=== PATIENT | female | born 1965 | race Caucasian/White ===

== ENCOUNTER 2024-01-11 15:00 | Emergency (ER) | payer BC ==
[~2024-01-11] VITALS: Ht 157.5 cm; Wt 59.0 kg
[2024-01-11 15:09] VITALS: BP_SYST 140; PULSE 93; RESP 22; TEMP 98.3; O2SAT 98
[2024-01-11] MEDS: ONDANSETRON HCL 4 MG/2 ML VIAL IVP ONE ×2 (15:37→16:16)
[2024-01-11] MEDS: NACL 0.9% 1,000 ML IV ONE ×2 (15:43→17:56)
[2024-01-11 15:46] LABS: BASOPHILS # (AUTO) 0.1 K/uL (0.0-0.2); EOSINOPHILS % (AUTO) 0.4 % (0.0-4.0); HEMATOCRIT 33.7 % (36-48); HEMOGLOBIN 11.5 g/dL (12.0-16.0); LYMPHOCYTES # (AUTO) 2.4 K/uL (1.0-5.5); LYMPHOCYTES % (AUTO) 42.3 % (20.5-51.5); MEAN CORPUSCULAR HEMOGLOBIN 27 pg (27-31); MEAN CORPUSCULAR HGB CONC 34 % (32-36); MEAN CORPUSCULAR VOLUME 79 fL (79.0-98.0); MONOCYTES # (AUTO) 0.3 K/uL (0.0-1.0); MONOCYTES % (AUTO) 6.1 % (1.7-9.3); NEUTROPHILS # (AUTO) 2.8 K/uL (1.8-7.7); NEUTROPHILS % (AUTO) 50.2 % (40.0-70.0); PLATELET COUNT (AUTO) 340 K/uL (130-430); RED BLOOD CELL COUNT(AUTO) 4.27 MIL/uL (4.2-6.2); WHITE BLOOD COUNT (AUTO) 5.7 K/uL (4.8-10.8)
[2024-01-11 15:50] LABS: ALBUMIN 3.6 g/dL (3.4-4.8); BILIRUBIN,DIRECT 0.1 mg/dL (0.0-0.3); CALCIUM 9.6 mg/dL (8.4-11.0); CREATININE 0.95 mg/dL (0.55-1.30); POTASSIUM 3.4 mmol/L (3.5-5.1); TOTAL BILIRUBIN 0.3 mg/dL (0.0-1.0); TOTAL PROTEIN, SERUM 7.5 g/dL (6.4-8.3)
[2024-01-11] MEDS: fentaNYL CITRATE/PF 100 MCG/2 ML AMP IVP ONE (15:51)
[2024-01-11] MEDS: METOCLOPRAMIDE HCL 10 MG/2 ML VIAL IVP ONE (17:14)
[2024-01-11] MEDS ORDERED: SUMAtriptan SUCCINATE 6 MG/0.5 ML VIAL ONE (17:40)
[2024-01-11] MEDS: SUMAtriptan SUCCINATE 6 MG/0.5 ML VIAL SUBCUT ONE (17:41)
[2024-01-11] MEDS: PROMETHAZINE INJ.Non-Formulary 25 MG/ML AMP IVP ONE (17:57)
[2024-01-11] MEDS ORDERED: IMI50 PO (18:53)
[2024-01-11] MEDS ORDERED: METO-290 PO (18:53)
[2024-01-11 19:44] VITALS: BP_SYST 110; PULSE 92; RESP 20; TEMP 97; O2SAT 97
== END 2024-01-11 19:44 | disposition home or self-care (01) ==
LOC: SED 15:00
DX: G97.1 Other reaction to spinal and lumbar puncture (principal); R11.2 Nausea with vomiting, unspecified; R51.9 Headache, unspecified; Z88.0 Allergy status to penicillin; Z79.899 Other long term (current) drug therapy
CPT/HCPCS: 99285; 96374; 96361; 70450; 96375; 80076; 80048; 83690; 85025; 36415; 96376; 96372; J2765; J2405; J3030; J3010; J7030; J2550